=== PATIENT | male | born 1940 | race Caucasian/White ===

== ENCOUNTER 2016-08-04 12:18 | Inpatient (IN) | payer MEDICARE, BC ==
[~2016-08-04] VITALS: Ht 177.8 cm; Wt 90.4 kg
[~2016-08-04 12:18] MED LIST: ANTI-FUNGAL12 TOP; ASPIRIN81 M1 OR; CARTIA XT240 MG/24 OR; DEBROX6.5 % AD; DOXYCYCL HYC100 MG PO; FOLIC ACID400 MC1 PO; INDOMETHACIN50 MG OR; LIPITOR80 MG OR; METOPROLOL100 MG OR; NEXIUM40 M1 OR; NORVASC10 M1 PO; SOLU-MEDROL125 MG IM; TRIAM/NYSTAT TOP
--- NOTE | 2016-08-04 12:30 | NUR ---
PT IMMEDIATELY TO RM 3 VIA EMS STRETCHER.
[2016-08-04] MEDS ORDERED: ATORVASTATIN CA80 MG PO (12:59)
[2016-08-04] MEDS ORDERED: AMLODIPINE5 MG PO (12:59)
[2016-08-04] MEDS ORDERED: BUMETANIDE1 MG PO (13:00)
[2016-08-04] MEDS ORDERED: HYDRALAZINE25 MG PO (13:03)
[2016-08-04] MEDS ORDERED: LOPRESSOR50 M1 PO (13:04)
[2016-08-04] MEDS ORDERED: LISINOPRIL40 MG PO (13:04)
[2016-08-04] MEDS ORDERED: ZOLOFT25 MG PO (13:07)
[2016-08-04] MEDS ORDERED: MYSOLINE50 M2 PO (13:07)
[2016-08-04] MEDS ORDERED: PROTONIX40 M2 PO (13:07)
[2016-08-04] MEDS ORDERED: VITAMIN B-12500 MCG PO (13:08)
[2016-08-04] MEDS ORDERED: MAG-OX 400400 MG PO (13:09)
[2016-08-04] MEDS ORDERED: K-DUR/KLOR-CON20 MEQ PO (13:09)
[2016-08-04] MEDS ORDERED: PLAVIX75 MG PO (13:10)
[2016-08-04] MEDS ORDERED: NITROSTAT0.4 MG SL (13:10)
[2016-08-04 13:16] LABS: HEMATOCRIT 23.4 % (39.0-50.0); IMMATURE GRANULOCYTES 0.7 % (0.0-1.0); MEAN CELL VOLUME 97.5 fL CALC (80.0-100.0); MEAN CORPUSCULAR HGB 33.3 pG CALC (26.0-32.0); MEAN CORPUSCULAR HGB CONC 34.2 g/L CALC (32.0-36.0); NEUT# 5.85 thou/uL (1.82-7.42); RED BLOOD COUNT 2.4 mill/uL (4.70-6.10); RED CELL DISTRI WIDTH 12.7 % (11.5-15.5)
[2016-08-04 13:20] LABS: ALBUMIN 4.2 g/dL (3.2-5.0); BILIRUBIN, TOTAL 0.5 mg/dL (0.0-1.4); CALCIUM 9.7 mg/dL (8.4-10.2); TOTAL PROTEIN 6.7 g/dL (6.3-8.2)
--- NOTE | 2016-08-04 13:20 | NUR ---
PT RESTING ON STRETCHER. RESP EVEN AND UNLABORED. SKIN WARM AND DRY. PT A&O X3. PT STATES NO NEEDS AT THIS TIME. PT DENIES PAIN EXCEPT WITH MOVEMENT. PT AWAITING CT SCAN. CALL LIGHT WITHIN REACH.
[2016-08-04 13:30] LABS: INTERNATIONAL NORMALIZED RATIO 0.9 RATIO (0.7-1.3); PROTHROMBIN TIME 9.6 SECONDS (9.0-12.5)
[2016-08-04 13:32] LABS: POTASSIUM 5.2 mmol/l (3.5-5.1)
--- NOTE | 2016-08-04 14:15 | NUR ---
PT RESTING ON STRETCHER. RESP EVEN AND UNLABORED. SKIN WARM AND DRY. PT A&O X3. VSS. PT STATES NO NEEDS AT THIS TIME. CALL LIGHT DIMPLE CORADO.
[2016-08-04 15:08] LABS: URINE BILIRUBIN - DIPSTICK NEGATIVE (NEGATIVE); URINE BLOOD DIPSTICK NEGATIVE (NEGATIVE); URINE CLARITY CLEAR; URINE COLOR YELLOW; URINE GLUCOSE - DIPSTICK NEGATIVE (NEGATIVE); URINE KETONE NEGATIVE (NEGATIVE); URINE LEUK ESTERASE NEGATIVE (NEGATIVE); URINE NITRITE - DIPSTICK NEGATIVE (Negative); URINE PROTEIN - DIPSTICK NEGATIVE (NEG-TRACE); URINE UROBILINOGEN - DIPSTICK 0.2 E.U./dL (0.2)
--- NOTE | 2016-08-04 15:20 | NUR ---
PT RESTING ON STRETCHER. RESP EVEN AND UNLABORED. SKIN WARM AND DRY. PT A&O X3. VSS. GRANDSON AT BEDSIDE. CALL LIGHT WITHIN REACH.
--- NOTE | 2016-08-04 16:14 | NUR ---
REPORT GIVEN TO MARLENE CARRASQUILLO
--- NOTE | 2016-08-04 16:17 | NUR ---
PT RESTING ON STRETCHER. RESP EVEN AND UNLABORED. SKIN WARM AND DRY. PT A&O X3. PT AWAITING ADMISSION. CALL LIGHT WITHIN REACH.
--- NOTE | 2016-08-04 17:15 | NUR ---
Admission Note Report Given to: MARLENE CARRASQUILLO Transported by: Wheelchair X Stretcher Transported with: X Nurse Transporter X Patent IV O2 X Commission Clerk PT IN STABLE CONDITION. IV SITE HEALTHY. ALL BELONGINS WITH PT, INCLUDING WALLET, SHOES, AND CLOTHING.
--- NOTE | 2016-08-04 17:49 | NUR ---
REPORT RECEIVED FROM SHAIRF IN ED, PT ARRIVED ON UNIT VIA STRETCHER, TRANSFERRED TO BED, ALERT AND ORIENTED X 3, C/O ACHING PAIN ALL OVER LOWER TRUNK WHEN COUGHING OR BEING PALPATED, WEAKNESS TO LOWER EXT AND TREMORS TO UPPER EXT. ORIENTED TO ROOM AND CALL LAO, EDUCATED ON FALL PRECAUTION AND DVT PROPHILAXIS. WILL CONTINUE TO MONITOR.
[2016-08-04 18:00] VITALS: BP 128/59
--- NOTE | 2016-08-04 18:50 | NUR ---
RECEIVED SHIFT REPORT FROM NEIDA CARCAMO. PATIENR LAYING IN BED AND APPEARS NOT TO BE IN ANY APPARENT ACUTE DISTRESS AT THIS TIME. PAIN IN ABDOMEN ONLY UPON COUGHING. WILL CONTINUE TO MONITOR.
--- NOTE | 2016-08-04 19:15 | NUR ---
STARTED INFUSION OF NORNAL SALINE SOLUTION VIA PUMP AT 125CC/HR.
[2016-08-05] VITALS (8 sets, daily range): BP systolic 121–161; BP diastolic 47–63
--- NOTE | 2016-08-05 | NUR ---
PATIENT IS AWAKE AT THIS TIME. DENIES ANY PAIN OR DISCOMFORT. WILL CONTINUE TO MONITOR.
--- NOTE | 2016-08-05 04:00 | NUR ---
PATIENT RESTING IN BED. A/O, NO ACUTE CHANGES NOTED IN PATIENT'S CONDITION.
[2016-08-05 05:16] LABS: CREATININE 1.4 mg/dL (0.7-1.3); POTASSIUM 4.9 mmol/l (3.5-5.1)
[2016-08-05 05:33] LABS: HEMATOCRIT 21.3 % (39.0-50.0); IMMATURE GRANULOCYTES 0.3 % (0.0-1.0); MEAN CELL VOLUME 99.1 fL CALC (80.0-100.0); MEAN CORPUSCULAR HGB 32.6 pG CALC (26.0-32.0); MEAN CORPUSCULAR HGB CONC 32.9 g/L CALC (32.0-36.0); NEUT# 3.74 thou/uL (1.82-7.42); RED BLOOD COUNT 2.15 mill/uL (4.70-6.10); RED CELL DISTRI WIDTH 12.7 % (11.5-15.5)
--- NOTE | 2016-08-05 05:38 | NUR ---
LAB CALL WITH HGB RESULT OF 7. DOWN ONE POINT FROMN ADMISSION.
--- NOTE | 2016-08-05 06:45 | NUR ---
REPORT RECEIVED FROM NEIDA CARRILLO. PT RESTING WITH EYES CLOSED, AWAKENS EASILY. ASSESSMENT PERFORMED. LAB IN ROOM AT THIS TIME TO DRAW TYPE AND SCREEN. PLAN OF CARE REVIEWED, PT INFORMED OF ORDER FOR BLOOD TRANSFUSION. STATES UNDERSTANDING, AND GIVES VERBAL CONSENT. WILL HAVE WRITTEN CONSENT SIGNED. PT ASSISTED TO SITTING POSITION, SLOW TO TRANSITION R/T PREVIOUS FALL. PT CALL LIGHT WITHIN REACH. WILL CONTINUE TO MONITOR.
--- NOTE | 2016-08-05 08:38 | NUR ---
CONSENT SIGNED AT THIS TIME FOR BLOOD TRANSFUSION.
--- NOTE | 2016-08-05 09:56 | NUR ---
BLOOD TRANSFUSION INITIATED AT THIS TIME. PT GIVEN EDUCATION OF POSSIBLE S.E. AND ADVERSE REACTIONS. PT STATES UNDERSTANDING OF NOTIFYING STAFF IMMEDIATELY IF REACTION OCCURS. VSS. WILL CONTINUE TO MONITOR.
--- NOTE | 2016-08-05 10:11 | NUR ---
TRANSFUSION INFUSING. PT VOICES NO CONCERNS AT THIS TIME. VSS. WILL CONTINUE TO MONITOR.
--- NOTE | 2016-08-05 10:56 | NUR ---
1 HOUR TRANSFUSION CHECK, VSS. PT VOICES NO CONCERNS AT THIS TIME. WILL CONTINUE TO MONITOR.
--- NOTE | 2016-08-05 12:38 | NUR ---
BLOOD TRANSFUSION FINISHED. PT TOLERATED WELL. VSS. IV FLUSHED WITH SALINE AND COVERED, FOR SHOWER. PT STEADY ON FEET. DOES EXHIBIT SHUFFLING OF FEET. HAS MILD TREMORS IN UPPER EXTREMITIES. ASSISTED TO BR. VOID IN TOILET, UNABLE TO MEASURE. SHOWER CHAIR SETUP. PT ABLE TO INDEPENDANTLY WASH HIMSELF, LINENS CHANGED. PT SETUP IN RECLINER AFTER SHOWER. TOLERATED ADL'S WITHOUT ANY DISTRESS, CALL LIGHT WITHIN REACH. WILL CONTINUE TO MONITOR.
--- NOTE | 2016-08-05 16:00 | NUR ---
VISITOR AT BS, PT VOICES NO CONCERNS. CALL LIGHT WITHIN REACH. WILL CONTINUE TO MONITOR.
--- NOTE | 2016-08-05 19:14 | NUR ---
BEDSIDE REPORT RECEIVED FROM NEIDA DAVENPORT. PT SITTING UP IN BED WATCHING TV. C/O PAIN 8/10 TO ABDOMEN WHERE BRUISING IS PRESENT. RESPIRATIONS EVEN AND UNLABORED ON ROOM AIR. ASSESSMENT COMPLETE. VS STABLE. TELEMETRY IN PLACE. ALERT AND ORIENTED. PLAN OF CARE DISCUSSED. PT ENCOURAGED TO VERBALIZE CONCERNS. STATES UNDERSTANDING. SAFETY MEASURES IN PLACE. CALL LIGHT WITHIN REACH.
--- NOTE | 2016-08-05 23:56 | NUR ---
PT RESTING IN BED SPEAKING ON CELL PHONE. NO SIGNS OF DISTRESS NOTED. CONTINUES TO C/O LEFT SIDE PAIN. PILLOW IN PLACE FOR SPLINTING. RESPIRATIONS EVEN AND UNLABORED. UP TO BATHROOM AD BETH. SAFETY MEASURES IN PLACE. CALL LIGHT WITHIN REACH.
[2016-08-06 04:02] VITALS: BP 148/69
--- NOTE | 2016-08-06 04:05 | NUR ---
PT ASLEEP AT THIS TIME. NO SIGNS OF DISTRESS NOTED. WHEN AWAKE C/O HEADACHE. RESPIRATIONS EVEN AND UNLABORED. NO CHANGES IN ASSESSMENT. SAFETY MEASURES IN PLACE. CALL LIGHT WITHIN REACH.
[2016-08-06 05:14] LABS: HEMATOCRIT 23.2 % (39.0-50.0); HEMOGLOBIN 7.8 g/dl (14.0-18.0); IMMATURE GRANULOCYTES 0.5 % (0.0-1.0); MEAN CELL VOLUME 97.5 fL CALC (80.0-100.0); MEAN CORPUSCULAR HGB 32.8 pG CALC (26.0-32.0); MEAN CORPUSCULAR HGB CONC 33.6 g/L CALC (32.0-36.0); RED BLOOD COUNT 2.38 mill/uL (4.70-6.10); RED CELL DISTRI WIDTH 14.1 % (11.5-15.5)
[2016-08-06 05:30] LABS: ANION GAP 13 (6-22 (CALC)); BUN 21 mg/dL (8-23); BUN/CREATININE RATIO 19 (12-20 (CALC)); CALCIUM 9.2 mg/dL (8.4-10.2); CARBON DIOXIDE 25 mmol/l (22-30); CHLORIDE 101 mmol/l (95-108); CREATININE 1.1 mg/dL (0.7-1.3); GFR > 60 ML/MIN (>=60 (CALC)); GFR FOR AFR.AMER. > 60 ML/MIN (>=60 (CALC)); GLUCOSE 88 mg/dL (82-115); POTASSIUM 4.6 mmol/l (3.5-5.1); SODIUM 134 mmol/l (137-146)
--- NOTE | 2016-08-06 07:20 | NUR ---
REPORT RECEIVED FROM LAKESHIA MCCOY. PT SLEEPING AT THIS TIME. CALL LIGHT WITHIN REACH.
[2016-08-06 07:45] VITALS: BP 160/61
[2016-08-06 07:51] VITALS: BP 160/61
--- NOTE | 2016-08-06 09:00 | NUR ---
DR. BERNAL IN TO SEE PT AT THIS TIME. PLAN OF CARE UPDATED. DISCHARGE HOME DISCUSSED. PT STATES UNDERSTANDING OF INFORMATION.
--- NOTE | 2016-08-06 09:54 | NUR ---
Discharge instructions given. Patient verbalizes understanding of same. Discharged in stable condition via Wheelchair to Home with family. All belongings sent with pt.
--- NOTE | 2016-08-06 14:08 | NUR ---
Reviewed medication list with patient on 08/05/16. Patient is taking primidone for tremors. He states that his tremors have improved significanly since his admittance to [facility]. He had been taking primidone 250 mg PO QHS prior to his admittance. Primidone peaks within 9 hours, therefore he may not benefit from the effects of the medication during the daytime. While at [facility], he was given primidone 150 mg PO in the morning. Recommend for the patient to continue taking primidone in the morning. 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 Pt has been discharged. Have not given this recommendation to patient yet. Left message for patient on 08/09/16 @ 1:50 pm to call back.
== END 2016-08-06 09:55 | disposition home or self-care (01) | DRG 897 ==
LOC: ENPENDDIS → ED 12:18 → ED-I 15:35 → ED 15:45 → MS2 15:46
PROVIDERS: Emergency Medicine; ADMIT Internal Medicine; ATTEND Internal Medicine
PROC: 30233N1 Transfusion of Nonautologous Red Blood Cells into Peripheral Vein, Percutaneous Approach (ICD-10-PCS; principal; 2016-08-05)
DX: F10.20 Alcohol dependence, uncomplicated (principal); N17.9 Acute kidney failure, unspecified; D63.8 Anemia in other chronic diseases classified elsewhere; E86.0 Dehydration; S50.811A Abrasion of right forearm, initial encounter; I10 Essential (primary) hypertension; E78.5 Hyperlipidemia, unspecified; I69.998 Other sequelae following unspecified cerebrovascular disease; S20.212A Contusion of left front wall of thorax, initial encounter; S30.1XXA Contusion of abdominal wall, initial encounter; I25.10 Atherosclerotic heart disease of native coronary artery without angina pectoris; T46.4X5A Adverse effect of angiotensin-converting-enzyme inhibitors, initial encounter; T50.1X5A Adverse effect of loop [high-ceiling] diuretics, initial encounter; R48.8 Other symbolic dysfunctions; W10.9XXA Fall (on) (from) unspecified stairs and steps, initial encounter; Z79.02 Long term (current) use of antithrombotics/antiplatelets; Z95.1 Presence of aortocoronary bypass graft
CPT/HCPCS: G0378; P9016

== ENCOUNTER 2017-04-07 22:14 | Emergency (ER) | payer MEDICARE, BC ==
[~2017-04-07] VITALS: Ht 177.8 cm; Wt 84.1 kg
[~2017-04-07 22:14] MED LIST changes: +AMLODIPINE5 MG PO; +ATORVASTATIN CA80 MG PO; +BUMETANIDE1 MG PO; +HYDRALAZINE25 MG PO; +K-DUR/KLOR-CON20 MEQ PO; +LISINOPRIL40 MG PO; +LOPRESSOR50 M1 PO; +MAG-OX 400400 MG PO; +MYSOLINE50 M2 PO; +NITROSTAT0.4 MG SL; +PLAVIX75 MG PO; +PROTONIX40 M2 PO; +VITAMIN B-12500 MCG PO; +ZOLOFT25 MG PO
[2017-04-07] MEDS ORDERED: ATORVASTATIN CA80 MG PO (23:02)
[2017-04-08 00:55] VITALS: BP 155/55
== END 2017-04-08 01:12 | disposition home or self-care (01) ==
LOC: ED 22:14
DX: S00.93XA Contusion of unspecified part of head, initial encounter (principal); S01.81XA Laceration without foreign body of other part of head, initial encounter; R00.1 Bradycardia, unspecified; R91.8 Other nonspecific abnormal finding of lung field; W18.39XA Other fall on same level, initial encounter; Y93.E9 Activity, other interior property and clothing maintenance; Y92.002 Bathroom of unspecified non-institutional (private) residence as the place of occurrence of the external cause

== ENCOUNTER 2017-05-11 16:42 | Emergency (ER) | payer MEDICARE, BC ==
[~2017-05-11] VITALS: Ht 177.8 cm; Wt 83.0 kg
[2017-05-11 17:32] LABS: HEMATOCRIT 34.4 % (39.0-50.0); HEMOGLOBIN 10.9 g/dl (14.0-18.0); IMMATURE GRANULOCYTES 0.3 % (0.0-1.0); MEAN CELL VOLUME 96.6 fL CALC (80.0-100.0); MEAN CORPUSCULAR HGB 30.6 pG CALC (26.0-32.0); MEAN CORPUSCULAR HGB CONC 31.7 g/L CALC (32.0-36.0); NEUT# 3.14 thou/uL (1.82-7.42); RED BLOOD COUNT 3.56 mill/uL (4.70-6.10); RED CELL DISTRI WIDTH 12.9 % (11.5-15.5)
[2017-05-11 17:51] LABS: ALBUMIN 3.6 g/dL (3.2-5.0); ALKALINE PHOSPHATASE 175 u/l (38-126); ANION GAP 15 (6-22 (CALC)); BILIRUBIN, TOTAL 0.5 mg/dL (0.0-1.4); BUN 22 mg/dL (8-23); BUN/CREATININE RATIO 21 (12-20 (CALC)); CARBON DIOXIDE 24 mmol/l (22-30); CHLORIDE 108 mmol/l (95-108); GFR > 60 ML/MIN (>=60 (CALC)); GFR FOR AFR.AMER. > 60 ML/MIN (>=60 (CALC)); POTASSIUM 4.6 mmol/l (3.5-5.1); SGOT/AST 35 u/l (19-48); SGPT/ALT 49 u/l (11-66); SODIUM 143 mmol/l (137-146); TOTAL PROTEIN 6.3 g/dL (6.3-8.2)
[2017-05-11] MEDS ORDERED: LOSARTAN POT50 MG PO (18:02)
[2017-05-11 18:04] LABS: MYOGLOBIN 46 ng/mL (0 - 121)
[2017-05-11 18:30] VITALS: BP 172/82
[2017-05-11 18:34] LABS: URINE BILIRUBIN - DIPSTICK NEGATIVE (NEGATIVE); URINE BLOOD DIPSTICK NEGATIVE (NEGATIVE); URINE COLOR YELLOW; URINE GLUCOSE - DIPSTICK NEGATIVE (NEGATIVE); URINE KETONE NEGATIVE (NEGATIVE); URINE LEUK ESTERASE NEGATIVE (NEGATIVE); URINE NITRITE - DIPSTICK NEGATIVE (Negative); URINE PH 5.5 (4.5-8.0); URINE PROTEIN - DIPSTICK NEGATIVE (NEG-TRACE); URINE UROBILINOGEN - DIPSTICK 0.2 E.U./dL (0.2)
[2017-05-11 18:44] LABS: BARBITURATES POSITIVE (NEGATIVE); COCAINE NEGATIVE (NEGATIVE); METHADONE NEGATIVE (NEGATIVE); OXCYCODONE NEGATIVE (NEGATIVE); TETRAHYDROCANNABIONOL NEGATIVE (NEGATIVE); TRICYLIC ANTIDEPRESSANTS NEGATIVE (NEGATIVE)
[2017-05-11 18:45] LABS: URINE CLARITY CLEAR
== END 2017-05-11 19:01 | disposition home or self-care (01) ==
LOC: ED 16:42
PROVIDERS: Emergency Medicine
DX: R00.1 Bradycardia, unspecified (principal); R53.1 Weakness; T44.7X5A Adverse effect of beta-adrenoreceptor antagonists, initial encounter; Y92.009 Unspecified place in unspecified non-institutional (private) residence as the place of occurrence of the external cause

== ENCOUNTER 2017-10-10 10:22 | Emergency (ER) | payer MEDICARE, BC ==
[~2017-10-10] VITALS: Ht 177.8 cm; Wt 84.1 kg
[~2017-10-10 10:22] MED LIST changes: +LOSARTAN POT50 MG PO
[2017-10-10] MEDS ORDERED: MOTRIN400 MG PO (11:49)
[2017-10-10 11:56] VITALS: BP 159/65
== END 2017-10-10 12:07 | disposition home or self-care (01) ==
LOC: ED 10:22
DX: S92.425A Nondisplaced fracture of distal phalanx of left great toe, initial encounter for closed fracture (principal); I10 Essential (primary) hypertension; W18.30XA Fall on same level, unspecified, initial encounter; Y93.89 Activity, other specified; Y92.008 Other place in unspecified non-institutional (private) residence as the place of occurrence of the external cause; Z95.828 Presence of other vascular implants and grafts; Z95.1 Presence of aortocoronary bypass graft; Z86.73 Personal history of transient ischemic attack (TIA), and cerebral infarction without residual deficits

== ENCOUNTER 2019-02-27 11:56 | Observation (INO) | payer MEDICARE, BC ==
[~2019-02-27] VITALS: Ht 177.8 cm; Wt 99.2 kg
[~2019-02-27 11:56] MED LIST changes: +MOTRIN400 MG PO
[2019-02-27 12:35] LABS: HEMATOCRIT 31.6 % (39.0-50.0); HEMOGLOBIN 10.4 g/dl (14.0-18.0); IMMATURE GRANULOCYTES 0.7 % (0.0-5.0); MEAN CORPUSCULAR HGB 31.6 pG CALC (26.0-32.0); MEAN CORPUSCULAR HGB CONC 32.9 g/L CALC (32.0-36.0); NEUT# 11.35 thou/uL (1.82-7.42); RED BLOOD COUNT 3.29 mill/uL (4.70-6.10); RED CELL DISTRI WIDTH 13.5 % (11.5-15.5)
[2019-02-27] MEDS ORDERED: ALLOPURINOL100 MG PO (12:41)
[2019-02-27 12:53] LABS: INTERNATIONAL NORMALIZED RATIO 0.9 RATIO (0.7-1.3); PROTHROMBIN TIME 9.8 SECONDS (9.0-12.5)
[2019-02-27 13:11] LABS: URINE BILIRUBIN - DIPSTICK NEGATIVE (NEGATIVE); URINE BLOOD DIPSTICK NEGATIVE (NEGATIVE); URINE COLOR YELLOW; URINE GLUCOSE - DIPSTICK NEGATIVE (NEGATIVE); URINE KETONE NEGATIVE (NEGATIVE); URINE LEUK ESTERASE NEGATIVE (NEGATIVE); URINE NITRITE - DIPSTICK NEGATIVE (Negative); URINE PH 5.5 (4.5-8.0); URINE PROTEIN - DIPSTICK NEGATIVE (NEG-TRACE); URINE SPECIFIC GRAVITY 1.015; URINE UROBILINOGEN - DIPSTICK 0.2 E.U./dL (0.2)
[2019-02-27 13:29] LABS: ALKALINE PHOSPHATASE 168 u/l (38-126); BILIRUBIN, TOTAL 0.4 mg/dL (0.0-1.4); BUN 32 mg/dL (8-23); BUN/CREATININE RATIO 25 (12-20 (CALC)); CARBON DIOXIDE 25 mmol/l (22-30); CHLORIDE 102 mmol/l (95-108); CREATININE 1.3 mg/dL (0.7-1.3); GFR 53 ML/MIN (>=60 (CALC)); GFR FOR AFR.AMER. > 60 ML/MIN (>=60 (CALC)); POTASSIUM 5.1 mmol/l (3.5-5.1); SGOT/AST 24 u/l (19-48)
[2019-02-27 13:31] LABS: ANION GAP 13 (6-22 (CALC)); SODIUM 135 mmol/l (137-146)
[2019-02-27 13:32] LABS: ALBUMIN 4.4 g/dL (3.2-5.0); TOTAL PROTEIN 8.4 g/dL (6.3-8.2)
[2019-02-27 13:42] LABS: MYOGLOBIN 40 ng/mL (0 - 121)
[2019-02-27] MEDS ORDERED: LOSARTAN POTASS50 MG PO (16:55)
[2019-02-27] MEDS ORDERED: ISOSORB MONO30 MG PO (16:57)
[2019-02-27 17:15] VITALS: BP 189/77
[2019-02-27] MEDS ORDERED: RANOLAZINE ER500 MG PO (18:21)
[2019-02-27] MEDS ORDERED: K-TAB20 MEQ PO (18:22)
[2019-02-27 20:10] VITALS: BP 145/84
[2019-02-27 23:10] VITALS: BP 170/74
[2019-02-28 00:36] VITALS: BP 154/62
[2019-02-28 04:30] VITALS: BP 103/61; BP 111/65; BP 160/82; BP 94/69
[2019-02-28 05:56] LABS: CHOLESTEROL HDL RATIO 1.7 (<4.4 (CALC))
[2019-02-28 09:08] VITALS: BP 136/63
[2019-02-28 09:47] LABS: HEMATOCRIT 31.8 % (39.0-50.0); HEMOGLOBIN 10.1 g/dl (14.0-18.0); IMMATURE GRANULOCYTES 0.5 % (0.0-5.0); MEAN CELL VOLUME 98.1 fL CALC (80.0-100.0); MEAN CORPUSCULAR HGB 31.2 pG CALC (26.0-32.0); MEAN CORPUSCULAR HGB CONC 31.8 g/L CALC (32.0-36.0); NEUT# 5.49 thou/uL (1.82-7.42); RED BLOOD COUNT 3.24 mill/uL (4.70-6.10); RED CELL DISTRI WIDTH 13.9 % (11.5-15.5)
[2019-02-28 09:57] LABS: ANION GAP 12 (6-22 (CALC)); BUN 29 mg/dL (8-23); BUN/CREATININE RATIO 26 (12-20 (CALC)); CARBON DIOXIDE 24 mmol/l (22-30); CHLORIDE 106 mmol/l (95-108); CREATININE 1.1 mg/dL (0.7-1.3); GFR > 60 ML/MIN (>=60 (CALC)); GFR FOR AFR.AMER. > 60 ML/MIN (>=60 (CALC)); MAGNESIUM 1.8 mg/dL (1.6-2.3); POTASSIUM 4.7 mmol/l (3.5-5.1); SODIUM 138 mmol/l (137-146)
[2019-02-28 11:36] VITALS: BP 173/64
[2019-02-28] MEDS ORDERED: ZITHROMAX250 MG PO (14:21)
[2019-02-28 15:45] VITALS: BP 171/69
== END 2019-02-28 18:00 | disposition home or self-care (01) ==
LOC: ED 11:56 → ED-I 13:45 → ED 14:02 → MS2 14:03
PROVIDERS: Emergency Medicine; Nurse Practitioner Family; ADMIT Internal Medicine; ATTEND Internal Medicine
DX: R07.9 Chest pain, unspecified (principal); R50.9 Fever, unspecified; D72.829 Elevated white blood cell count, unspecified; I16.0 Hypertensive urgency; I25.119 Atherosclerotic heart disease of native coronary artery with unspecified angina pectoris; I10 Essential (primary) hypertension; E78.5 Hyperlipidemia, unspecified; Z87.891 Personal history of nicotine dependence; Z86.73 Personal history of transient ischemic attack (TIA), and cerebral infarction without residual deficits; Z95.5 Presence of coronary angioplasty implant and graft; Z95.1 Presence of aortocoronary bypass graft
CPT/HCPCS: G0378

== ENCOUNTER 2019-04-14 | Inpatient (IN) | payer MEDICARE, BC ==
[2019-04-13 10:53] LABS: HEMATOCRIT 31.5 % (39.0-50.0); HEMOGLOBIN 10.3 g/dl (14.0-18.0); IMMATURE GRANULOCYTES 0.3 % (0.0-5.0); MEAN CELL VOLUME 96.6 fL CALC (80.0-100.0); MEAN CORPUSCULAR HGB 31.6 pG CALC (26.0-32.0); MEAN CORPUSCULAR HGB CONC 32.7 g/L CALC (32.0-36.0); NEUT# 5.78 thou/uL (1.82-7.42); RED BLOOD COUNT 3.26 mill/uL (4.70-6.10); RED CELL DISTRI WIDTH 15.1 % (11.5-15.5)
[2019-04-13 11:34] LABS: ANION GAP 13 (6-22 (CALC)); BUN 30 mg/dL (8-23); BUN/CREATININE RATIO 23 (12-20 (CALC)); CARBON DIOXIDE 27 mmol/l (22-30); CHLORIDE 100 mmol/l (95-108); CREATININE 1.3 mg/dL (0.7-1.3); GFR 53 ML/MIN (>=60 (CALC)); GFR FOR AFR.AMER. > 60 ML/MIN (>=60 (CALC)); SODIUM 135 mmol/l (137-146)
[2019-04-13 18:05] VITALS: BP 227/95
[2019-04-13 19:42] VITALS: BP 204/82
[2019-04-13 23:14] VITALS: BP 179/72
[2019-04-14] VITALS (35 sets, daily range): BP systolic 114–182; BP diastolic 41–97
[~2019-04-14] MED LIST changes: +ALLOPURINOL100 MG PO; +ISOSORB MONO30 MG PO; +K-TAB20 MEQ PO; +LOSARTAN POTASS50 MG PO; +RANOLAZINE ER500 MG PO; +ZITHROMAX250 MG PO
== END 2019-04-14 15:16 | disposition short-term general hospital (02) | DRG 83 ==
PROVIDERS: Family Medicine; ADMIT Internal Medicine
DX: S06.369A Traumatic hemorrhage of cerebrum, unspecified, with loss of consciousness of unspecified duration, initial encounter (principal); N17.9 Acute kidney failure, unspecified; I25.119 Atherosclerotic heart disease of native coronary artery with unspecified angina pectoris; I12.9 Hypertensive chronic kidney disease with stage 1 through stage 4 chronic kidney disease, or unspecified chronic kidney disease; N18.3 Chronic kidney disease, stage 3 (moderate); E78.5 Hyperlipidemia, unspecified; F10.20 Alcohol dependence, uncomplicated; T50.901A Poisoning by unspecified drugs, medicaments and biological substances, accidental (unintentional), initial encounter; W19.XXXA Unspecified fall, initial encounter; Z95.1 Presence of aortocoronary bypass graft; Z95.5 Presence of coronary angioplasty implant and graft; Z86.73 Personal history of transient ischemic attack (TIA), and cerebral infarction without residual deficits; Z87.891 Personal history of nicotine dependence; Z79.02 Long term (current) use of antithrombotics/antiplatelets; Z79.82 Long term (current) use of aspirin; Z66 Do not resuscitate; Z91.81 History of falling
CPT/HCPCS: G0378

== ENCOUNTER 2020-12-15 14:52 | Observation (INO) | payer MEDICARE, BC ==
[~2020-12-15] VITALS: Ht 177.8 cm; Wt 96.6 kg
[~2020-12-15 14:52] MED LIST changes: +HYDRALAZINE10 MG PO; -HYDRALAZINE25 MG PO
[2020-12-15] MEDS ORDERED: FUROSEMIDE20 MG PO (16:09)
[2020-12-15] MEDS ORDERED: NORVASC2.5 M1 PO (16:09)
[2020-12-15 18:00] LABS: HEMATOCRIT 33.3 % (39.0-50.0); HEMOGLOBIN 10.5 g/dl (14.0-18.0); IMMATURE GRANULOCYTES 0.3 % (0.0-5.0); MEAN CELL VOLUME 100.3 fL CALC (80.0-100.0); MEAN CORPUSCULAR HGB 31.6 pG CALC (26.0-32.0); MEAN CORPUSCULAR HGB CONC 31.5 g/dL CAL (32.0-36.0); NEUT# 7.52 thou/uL (1.82-7.42); RED BLOOD COUNT 3.32 mill/uL (4.70-6.10); RED CELL DISTRI WIDTH 12.9 % (11.5-15.5)
[2020-12-15 18:09] LABS: ALBUMIN 4.3 g/dL (3.2-5.0); ALKALINE PHOSPHATASE 176 u/l (38-126); ANION GAP 12 (6-22 (CALC)); BUN 42 mg/dL (8-23); BUN/CREATININE RATIO 26 (12-20 (CALC)); CARBON DIOXIDE 26 mmol/l (22-30); CHLORIDE 105 mmol/l (95-108); CREATININE 1.6 mg/dL (0.7-1.3); GFR 42 ML/MIN (>=60 (CALC)); GFR FOR AFR.AMER. 51 ML/MIN (>=60 (CALC)); POTASSIUM 4.7 mmol/l (3.5-5.1); SGOT/AST 17 u/l (19-48); SODIUM 138 mmol/l (137-146); TOTAL PROTEIN 7.8 g/dL (6.3-8.2)
[2020-12-15 18:10] LABS: BILIRUBIN, TOTAL 0.8 mg/dL (0.0-1.4)
[2020-12-15 19:23] LABS: URINE BILIRUBIN - DIPSTICK NEGATIVE (NEGATIVE); URINE BLOOD DIPSTICK NEGATIVE (NEGATIVE); URINE COLOR YELLOW; URINE GLUCOSE - DIPSTICK NEGATIVE (NEGATIVE); URINE KETONE NEGATIVE (NEGATIVE); URINE LEUK ESTERASE NEGATIVE (NEGATIVE); URINE PROTEIN - DIPSTICK NEGATIVE (NEG-TRACE); URINE SPECIFIC GRAVITY 1.015; URINE UROBILINOGEN - DIPSTICK 0.2 E.U./dL (0.2)
[2020-12-15 19:25] LABS: URINE NITRITE - DIPSTICK NEGATIVE (Negative)
[2020-12-15 19:35] VITALS: BP 159/83
[2020-12-16] VITALS (10 sets, daily range): BP systolic 152–193; BP diastolic 62–78
[2020-12-16 04:48] LABS: HEMATOCRIT 30.5 % (39.0-50.0); HEMOGLOBIN 9.8 g/dl (14.0-18.0); IMMATURE GRANULOCYTES 0.7 % (0.0-5.0); MEAN CELL VOLUME 98.1 fL CALC (80.0-100.0); MEAN CORPUSCULAR HGB 31.5 pG CALC (26.0-32.0); MEAN CORPUSCULAR HGB CONC 32.1 g/dL CAL (32.0-36.0); NEUT# 4.52 thou/uL (1.82-7.42); RED BLOOD COUNT 3.11 mill/uL (4.70-6.10); RED CELL DISTRI WIDTH 12.9 % (11.5-15.5)
[2020-12-16 05:07] LABS: ALBUMIN 3.5 g/dL (3.2-5.0); BILIRUBIN, TOTAL 0.8 mg/dL (0.0-1.4); CREATININE 1.5 mg/dL (0.7-1.3); MAGNESIUM 1.9 mg/dL (1.6-2.3); POTASSIUM 4.5 mmol/l (3.5-5.1); TOTAL PROTEIN 6.4 g/dL (6.3-8.2)
[2020-12-17 04:00] VITALS: BP 169/72
[2020-12-17 04:54] LABS: HEMATOCRIT 33.2 % (39.0-50.0); HEMOGLOBIN 10.7 g/dl (14.0-18.0); IMMATURE GRANULOCYTES 0.6 % (0.0-5.0); MEAN CELL VOLUME 98.8 fL CALC (80.0-100.0); MEAN CORPUSCULAR HGB 31.8 pG CALC (26.0-32.0); MEAN CORPUSCULAR HGB CONC 32.2 g/dL CAL (32.0-36.0); NEUT# 3.81 thou/uL (1.82-7.42); RED BLOOD COUNT 3.36 mill/uL (4.70-6.10); RED CELL DISTRI WIDTH 12.9 % (11.5-15.5)
[2020-12-17 04:57] VITALS: BP 154/67
[2020-12-17 05:04] LABS: ANION GAP 12 (6-22 (CALC)); BUN 30 mg/dL (8-23); BUN/CREATININE RATIO 23 (12-20 (CALC)); CARBON DIOXIDE 25 mmol/l (22-30); CHLORIDE 107 mmol/l (95-108); CREATININE 1.3 mg/dL (0.7-1.3); GFR 53 ML/MIN (>=60 (CALC)); GFR FOR AFR.AMER. > 60 ML/MIN (>=60 (CALC)); MAGNESIUM 1.8 mg/dL (1.6-2.3); POTASSIUM 4.3 mmol/l (3.5-5.1); SODIUM 138 mmol/l (137-146)
[2020-12-17 08:39] VITALS: BP 187/78
[2020-12-17 09:19] VITALS: BP 170/76
[2020-12-17] MEDS ORDERED: LEVAQUIN750 M1 PO (09:58)
[2020-12-17 10:39] VITALS: BP 150/59
[2020-12-17 12:20] VITALS: BP 159/80
[2020-12-18] MEDS ORDERED: PREDNISONE50 MG PO (18:21)
== END 2020-12-17 12:35 | disposition home or self-care (01) ==
LOC: ED 14:52 → ED-I 18:49 → ED 19:00 → MS2 19:01
PROVIDERS: Emergency Medicine; ADMIT Internal Medicine; ATTEND Internal Medicine
DX: J18.9 Pneumonia, unspecified organism (principal); R09.02 Hypoxemia; I12.9 Hypertensive chronic kidney disease with stage 1 through stage 4 chronic kidney disease, or unspecified chronic kidney disease; N18.9 Chronic kidney disease, unspecified; N17.9 Acute kidney failure, unspecified; I25.10 Atherosclerotic heart disease of native coronary artery without angina pectoris; E78.5 Hyperlipidemia, unspecified; Z86.73 Personal history of transient ischemic attack (TIA), and cerebral infarction without residual deficits; Z95.1 Presence of aortocoronary bypass graft; Z95.5 Presence of coronary angioplasty implant and graft; Z87.891 Personal history of nicotine dependence; Z20.822 Contact with and (suspected) exposure to COVID-19
CPT/HCPCS: J1650

== ENCOUNTER 2020-12-18 13:51 | Emergency (ER) | payer MEDICARE, BC ==
[~2020-12-18] VITALS: Ht 177.8 cm; Wt 85.0 kg
[~2020-12-18 13:51] MED LIST changes: +FUROSEMIDE20 MG PO; +LEVAQUIN750 M1 PO; +NORVASC2.5 M1 PO
[2020-12-18 14:48] LABS: HEMATOCRIT 30.5 % (39.0-50.0); HEMOGLOBIN 9.4 g/dl (14.0-18.0); IMMATURE GRANULOCYTES 0.8 % (0.0-5.0); MEAN CELL VOLUME 101.7 fL CALC (80.0-100.0); MEAN CORPUSCULAR HGB 31.3 pG CALC (26.0-32.0); MEAN CORPUSCULAR HGB CONC 30.8 g/dL CAL (32.0-36.0); NEUT# 4.68 thou/uL (1.82-7.42)
[2020-12-18 15:03] LABS: ALBUMIN 3.8 g/dL (3.2-5.0); ALKALINE PHOSPHATASE 119 u/l (38-126); ANION GAP 12 (6-22 (CALC)); BILIRUBIN, TOTAL 0.6 mg/dL (0.0-1.4); BUN 37 mg/dL (8-23); BUN/CREATININE RATIO 21 (12-20 (CALC)); CARBON DIOXIDE 24 mmol/l (22-30); CHLORIDE 108 mmol/l (95-108); CREATININE 1.8 mg/dL (0.7-1.3); GFR 36 ML/MIN (>=60 (CALC)); GFR FOR AFR.AMER. 44 ML/MIN (>=60 (CALC)); POTASSIUM 4.4 mmol/l (3.5-5.1); SGOT/AST 23 u/l (19-48); SODIUM 139 mmol/l (137-146); TOTAL PROTEIN 6.9 g/dL (6.3-8.2)
[2020-12-18] MEDS ORDERED: PREDNISONE50 MG PO (18:21)
[2020-12-18 18:52] VITALS: BP 169/70
--- NOTE | 2020-12-19 11:12 | NUR ---
{sade,pmoa [pst doscjarge fp;;pw i[ ca;; cp,[;eted tpdau. 12/19/20/ Pt. states he has been experiencing fever, chills, and weakness since discharge. Pt. returned to ED yesterday and obtained a script for additional medication. Pt. states he is feeling better since taking new meds. Follow up appt with PCP is scheduled for tomorrow at 2"45 PM. No questions or concerns voiced by patient at this time.
== END 2020-12-18 18:57 | disposition home or self-care (01) ==
LOC: ED 13:51
DX: J18.9 Pneumonia, unspecified organism (principal); E86.0 Dehydration; I10 Essential (primary) hypertension; Z86.73 Personal history of transient ischemic attack (TIA), and cerebral infarction without residual deficits; Z95.1 Presence of aortocoronary bypass graft; T36.96XA Underdosing of unspecified systemic antibiotic, initial encounter; Z91.138 Patient's unintentional underdosing of medication regimen for other reason
CPT/HCPCS: J1956